=== PATIENT | female | born 1990 | race Hispanic/Latino ===

== ENCOUNTER → 2018-02-16 | Day surgery (SDC) | payer OTHER ==
[~2018-02-16] MED LIST: Fentanyl 100 MCG/2 ML VIAL ONE; Lidocaine 1% PF 5 ML VIAL ONE; Midazolam HCl 2 mg/2 ml Vial ONE; Sodium Bicarbonate 2.5 MEQ/5 ML VIAL ONE
[2018-02-16 08:13] LABS: #Eosinphils 0.3 thou/uL (0.0-0.7); #Lymphocytes 2.6 thou/uL (1.20-3.40); #Monocytes 0.7 thou/uL (0.11-0.59); #Neutrophils 4.7 thou/uL (1.40-6.50); %Basophils 0.4 % (0.0-1.0); %Eosinophils 4.2 % (0.0-10.0); %Lymphocytes 31.1 % (21.0-51.0); %Monocytes 8.6 % (0.0-10.0); %Neutrophils 55.8 % (42.0-75.0); Hemoglobin 13.6 g/dL (12.0-16.0); Mean Corpuscular HGB CONC 32.7 g/dL (32.0-36.0); Mean Corpuscular Volume 82.6 fl (81.0-99.0); Mean Platelet Volume 6.8 fL (7.4-10.4); Platelet Count 309 thou/uL (130-400); RBC Distribution Width 13.1 % (11.5-14.5); Red Blood Cell (RBC) Count 5.05 mill/uL (4.20-5.40); White Blood Cell (WBC) Count 8.4 thou/uL (4.8-10.8)
[2018-02-16 08:26] LABS: INR-International Normal Ratio 1.1; PTT 28.3 SEC (22.9-36.1); Prothrombin Time 14.3 SEC (12.0-14.7)
[2018-02-16 08:41] VITALS: TEMP 98.5
[2018-02-16 08:50] LABS: ALT (SGPT) 238 U/L (8-55); AST (SGOT) 107 U/L (5-34); Albumin 3.9 g/dL (3.5-5.0); Alkaline Phosphatase 85 U/L (40-150); Bilirubin, Direct 0.2 mg/dL (0.1-0.3); Bilirubin, Total 0.5 mg/dL (0.2-1.2); Protein, Total 7.4 g/dL (6.0-8.3)
--- NOTE | 2018-02-16 11:17 | ULT ---
ULTRASOUND HEPATIC DOPPLER: (ALCANTARA SCALE, COLOR FLOW, AND SPECTRAL DOPPLER) Date: 02/16/18 HISTORY: Elevated LFTs. FINDINGS: The liver demonstrates homogeneous echotexture without focal mass or intrahepatic ductal dilatation. The spleen measures 12.1 cm in length and appears normal. There is a mobile shadowing calculus in the gallbladder without gallbladder wall thickening or pericholecystic fluid. The pancreas is not well v isualized due to overlying bowel gas. The common duct measures 6.0 mm in diameter. There is normal fl ow and spectral waveforms in the hepatic, portal, and splenic vasculature. No free fluid is seen. IMPRESSION: Cholelithiasis. POS: [facility]
--- NOTE | 2018-02-16 12:17 | ULT ---
ULTRASOUND GUIDED HEPATIC BIOPSY: HISTORY: Elevated LFTs. COMPARISON: None. TECHNIQUE: The patient was brought to the ultrasound suite. All questions were answered. The patient's upper abdomen was prepped and draped in a normal sterile fashion, and 0.5 mg of Versed and 25 mcg of fentanyl were administered intravenously by a monitoring nurse. Buffered Lidocaine, 5 mL, was instilled into the superficial and deep soft tissues. A small dermatot aubrey was made. The liver was accessed with a 17 gauge introducer. Using an 18 gauge BioPince needle, a total of two 22 mm cores were obtained. The patient tolerated the procedure well without complications. IMPRESSION: Technically successful ultrasound guided liver biopsy. POS: [facility]
== END ==
LOC: ULT 07:35
PROVIDERS: ATTEND Internal Medicine Gastroenterology
PROC: 0FB03ZX Excision of Liver, Percutaneous Approach, Diagnostic (ICD-10-PCS; principal; 2018-02-16)
DX: K75.81 Nonalcoholic steatohepatitis (NASH) (principal); K74.0 Hepatic fibrosis
CPT/HCPCS: 36415; 47000; 76705; 76942; 80076; 85025; 85610; 85730; 88307; 88313; 99152; 99153; J2001; J2250; J3010

== ENCOUNTER 2018-03-23 08:16 | Outpatient (CLI) | payer OTHER | END 2018-03-23 08:17 | disposition home or self-care (01) | LOC: DTY/OP 08:16 | PROVIDERS: ATTEND Family Medicine | DX: K76.0 Fatty (change of) liver, not elsewhere classified (principal); K70.2 Alcoholic fibrosis and sclerosis of liver; K80.20 Calculus of gallbladder without cholecystitis without obstruction; Z71.3 Dietary counseling and surveillance | CPT/HCPCS: 97802 ==

== ENCOUNTER 2018-05-18 13:40 | Outpatient (CLI) | payer OTHER | END 2018-05-18 13:41 | disposition home or self-care (01) | LOC: DTY/OP 13:40 | PROVIDERS: ATTEND Family Medicine | DX: K76.0 Fatty (change of) liver, not elsewhere classified (principal) | CPT/HCPCS: 97802 ==

== ENCOUNTER 2018-08-21 08:45 | Outpatient (CLI) | payer OTHER | END 2018-08-21 08:46 | disposition home or self-care (01) | LOC: DTY/OP 08:45 | PROVIDERS: ATTEND Family Medicine | DX: K76.0 Fatty (change of) liver, not elsewhere classified (principal) | CPT/HCPCS: 97802 ==

== ENCOUNTER 2020-02-21 15:00 | Outpatient (CLI) | payer BC ==
--- NOTE | 2020-02-21 16:55 | ULT ---
TRANSABDOMINAL AND TRANSVAGINAL PELVIC ULTRASOUND: 02/21/20 INDICATION: Left lower quadrant abdominal pain. COMPARISON: None. TECHNIQUE: Bell scale, color Doppler with spectral Doppler images were obtained of the pelvis via transabdominal and transvaginal approach. FINDINGS: The left ovary was not seen. No free fluid is evident. The uterus measures 7.8 x 3.5 x 4.9 cm. The endometrial stripe measures 3.3 mm. There are multiple Na bothian cysts seen within the cervix. The right ovary measures 2.5 x 3.0 x 1.9 cm. There is a small follicle seen within the right ovary me asuring 1.4 cm. There is normal flow to the right ovary. IMPRESSION: 1. Nonvisualization of the left ovary. 2. Small right ovarian follicular cyst. 3. Nabothian cysts of the cervix. POS: [facility]
== END 2020-02-21 15:01 | disposition home or self-care (01) ==
LOC: ULT 15:00
PROVIDERS: ATTEND Physician Assistant
DX: R10.32 Left lower quadrant pain (principal); N88.8 Other specified noninflammatory disorders of cervix uteri; N83.01 Follicular cyst of right ovary
CPT/HCPCS: 36415; 76856; 80053; 85025

== ENCOUNTER 2020-10-16 15:41 | Inpatient (IN) | payer BC ==
[~2020-10-16 15:41] MED LIST changes: -Fentanyl 100 MCG/2 ML VIAL ONE; +Iopamidol-370 76% 500 ML 1 ML ONE; -Lidocaine 1% PF 5 ML VIAL ONE; -Midazolam HCl 2 mg/2 ml Vial ONE; -Sodium Bicarbonate 2.5 MEQ/5 ML VIAL ONE
[2020-10-16 16:14] LABS: #Monocytes 0.4 thou/uL (0.11-0.59); #Neutrophils 13.3 thou/uL (1.40-6.50); %Basophils 0.3 % (0.0-1.0); %Eosinophils 0.2 % (0.0-10.0); %Lymphocytes 6.7 % (21.0-51.0); %Monocytes 2.6 % (0.0-10.0); %Neutrophils 90.2 % (42.0-75.0); Hemoglobin 15.2 g/dL (12.0-16.0); Mean Corpuscular HGB CONC 32.5 g/dL (32.0-36.0); Mean Corpuscular Hemoglobin 25.5 pg (27.0-31.0); Mean Corpuscular Volume 78.6 fL (78.0-98.0); Mean Platelet Volume 6.9 fL (7.4-10.4); Platelet Count 397 thou/uL (130-400); RBC Distribution Width 14.6 % (11.5-14.5); Red Blood Cell (RBC) Count 5.95 mill/uL (4.20-5.40); White Blood Cell (WBC) Count 14.7 thou/uL (4.8-10.8)
--- NOTE | 2020-10-16 16:17 | RAD ---
XR Chest 1 View Portable History: Dyspnea Comparison: Radiograph 2015 Findings: Abnormal patchy peripheral and perihilar opacities. Severe lung hypoinflation. No pneumotho rax or effusion. No acute osseous abnormality. Impression: Commonly reported imaging findings of Covid-19 pneumonia.
[2020-10-16 16:19] LABS: BHCG - Serum Negative (NEGATIVE); Pregs Control Background? CLEAR/WHITE (CLR/WHITE); Pregs Control Bar Appear? YES (CONTROL BAR)
[2020-10-16 16:33] LABS: ALT (SGPT) 79 U/L (8-55); AST (SGOT) 48 U/L (5-34); Alkaline Phosphatase 64 U/L (40-110); Anion Gap 18 mmol/L (10-20); BUN (Urea Nitrogen) 12 mg/dL (7.0-18.7); Bilirubin, Total 0.4 mg/dL (0.2-1.2); CK (CPK) 26 U/L (29-168); Calc. Creatinine Clearance 0 mL/min (70-130); Calcium 9.5 mg/dL (7.8-10.44); Carbon Dioxide 24 mmol/L (22-29); Chloride 103 mmol/L (98-107); Globulin 4.3 g/dL (2.4-3.5); Glucose 219 mg/dL (70-105); Lipase 15 U/L (8-78); Protein, Total 8.3 g/dL (6.0-8.3); Sodium 141 mmol/L (136-145)
[2020-10-16] MEDS ORDERED: cefTRIAXone\\ROCEPHIN 2 GM VIAL ONE (17:46)
[2020-10-16] MEDS ORDERED: Dexamethasone 10 MG/ML VIAL ONE (17:46)
[2020-10-16] MEDS ORDERED: Enoxaparin Sodium 100 MG/ML SYRINGE ONE (17:46)
[2020-10-16] MEDS ORDERED: Aspirin Chewable 81 MG TAB ONE (17:46)
--- NOTE | 2020-10-16 17:48 | CT ---
CT PULMONARY ANGIOGRAM WITH IV CONTRAST AND 3-D POSTPROCESSING: HISTORY:Dyspnea, elevated d-dimer, shortness of breath and COVID 19 positive FINDINGS: There is good contrast opacification of the pulmonary arterial vasculature without filling defects to suggest pulmonary embolism. The thoracic aorta is without aneurysm or dissection. No pleural or pericardial effusions are seen. No pneumothoraces are noted. There are multifocal patchy areas of groundglass opacities and consolid ation bilaterally. The bony structures and upper abdominal tomograms are unremarkable. IMPRESSION: 1. No CT evidence of pulmonary embolism. 2. COVID 19 pneumonia
--- NOTE | 2020-10-16 18:22 | PDOC.HHP ---
Hospitalist HPI - History of Present Illness Dyspnea History of Present Illness: PCP: Dr. Delaney, [facility] The patient is a 30-year-old female with past medical history significant for prediabetes that presents to emergency department for the above complaint. Patient reports being diagnosed with COVID-19 virus 11 days ago. She reports that her entire family has Covid pneumonia. She reports that her symptoms have included mild dyspnea, nonproductive cough and intermittent pleuritic chest pain. She reports that today she became significantly more short of breath. Her dyspnea is non exertional. She denies swelling or pain to Lower extremities. No heart palpitations. Her primary care provider has started her on a azithromycin, which she has taken for 2 days now. She has had 2 rounds of low dose steroids, the first round being 10 days with little improvement of symptoms. She was started on another 6-day course of therapy, today being day 2. She denies any fever or chills. She denies loss of taste or smell. She denies abdominal pain, nausea, vomiting, diarrhea. She has no urinary symptoms. Her chest pain is generalized, described as sharp pleuritic in nature worse with deep inhalation, relieved by nothing. ED Course: VITAL SIGNS MonOct 16, 2020 15:42 GIOVANNI Son Amanda Pulse: 136, O2 sat: 68 on (Room Air), Time: 10/16/2020 15:42. VITAL SIGNS MonOct 16, 2020 15:47 GIOVANNI Montoya Alexandra BP: 140/83, MAP: 102, Pulse: 121, Resp: 40, Temp: 98.4 (Oral), Pain: 0, O2 sat: 96 on (Non Rebreather), Time: 10/16/2020 15:47. VITAL SIGNS MonOct 16, 2020 16:00 GIOVANNI Montoya Alexandra BP: 119/80, MAP: 93, Pulse: 122, Resp: 39, Pain: 0, O2 sat: 97 on (Non Rebreather), Time: 10/16/2020 16:00. VITAL SIGNS MonOct 16, 2020 16:30 GIOVANNI Montoya Alexandra BP: 119/82, MAP: 94, Pulse: 114, Resp: 35, Temp: 98.1 (Oral), Pain: 0, O2 sat: 99 on (Non Rebreather), Time: 10/16/2020 16:30. VITAL SIGNS MonOct 16, 2020 17:00 GIOVANNI Montoya Alexandra BP: 145/86, MAP: 96, Pulse: 103, Resp: 27, Pain: 0, O2 sat: 100 on (Non Rebreather), Time: 10/16/2020 17:00. VITAL SIGNS MonOct 16, 2020 17:40 GIOVANNI Montoya Alexandra BP: 118/86, MAP: 96, Pulse: 115, Resp: 38, Temp: 98.9 (Oral), Pain: 0, O2 sat: 97 on (Non Rebreather), Time: 10/16/2020 17:40. VITAL SIGNS MonOct 16, 2020 18:06 GIOVANNI Montoya Alexandra BP: 127/96, MAP: 106, Pulse: 112, Resp: 30, Pain: 0, O2 sat: 99 on (Non Rebreather), Time: 10/16/2020 18:06. Medications: Lovenox 1 mg/kg Subcutaneous Given 18:03 10/16/2020 cefTRIAXone injection 2 g IV Piggy Back Given 18:01 10/16/2020 aspirin oral 324 mg Oral Given 17:56 10/16/2020 Decadron Phosphate injection 10mg mg IV Push Given 17:55 10/16/2020 sodium chloride 0.9 % intravenous 1 L IV Fluid Infusion Given 17:54 10/16/2020 Hospitalist ROS - Review of Systems All other systems reviewed; all pertinent +/- noted in HPI/Subj - Medication Medications: metFORMIN MonOct 16, 2020 16:05 GIOVANNI Montoya Alexandra tablet : Strength - 500 mg : ORAL Patient Dose: 1 tab(s) Oral once a day. dexamethasone MonOct 16, 2020 16:06 GIOVANNI Montoya Alexandra tablet : Strength - 6 mg : ORAL Patient Dose: 1 tab(s) Oral once a day. Zithromax oral MonOct 16, 2020 16:07 GIOVANNI Montoya Alexandra capsule : Strength - 250 mg : ORAL Patient Dose: Unknown Allergies: No Known Allergies Hospitalist History - Past Medical History Source: patient Endocrine: reports: Diabetes (Prediabetes) - Past Surgical History Past Surgical History: reports: no pertinent history - Family History Other Family History: Noncontributory to this case - Social History Smoking Status: Never smoker Alcohol: reports: None Drugs: reports: none Living Situation: With Family Activity level: independent ambulation - Exam General Appearance: awake alert. negative: ill appearing General - other findings: Mild respiratory distress, nonrebreather, mild tachypnea Eye: anicteric sclera ENT: normocephalic atraumatic, dry oral mucosa Neck: supple, no lymphadenopathy Heart: no murmur, no gallops, no rubs, normal peripheral pulses Heart - other findings: Tachycardic Respiratory: no wheezes, no rales, no ronchi, tachypneic Respiratory - other findings: Diminished lower lobes Gastrointestinal: soft, non-tender, normal bowel sounds, no guarding, no rigidity Extremities: no cyanosis, no edema Skin: no rashes Neurological: no focal deficits Musculoskeletal: normal tone, normal strength Psychiatric: normal affect, A&O x 3 Hospitalist Results - Labs Result Diagrams: 10/16/20 16:02 10/16/20 16:02 Lab results: WBC 14.7 thou/uL (4.8-10.8) H 10/16/20 16:02 Hgb 15.2 g/dL (12.0-16.0) 10/16/20 16:02 Hct 46.8 % (36.0-47.0) 10/16/20 16:02 MCV 78.6 fL (78.0-98.0) 10/16/20 16:02 Plt Count 397 thou/uL (130-400) 10/16/20 16:02 Neutrophils % 90.2 % (42.0-75.0) H 10/16/20 16:02 Sodium 141 mmol/L (136-145) 10/16/20 16:02 Potassium 4.0 mmol/L (3.5-5.1) 10/16/20 16:02 Chloride 103 mmol/L (98-107) 10/16/20 16:02 Carbon Dioxide 24 mmol/L (22-29) 10/16/20 16:02 BUN 12 mg/dL (7.0-18.7) 10/16/20 16:02 Creatinine 0.70 mg/dL (0.6-1.1) 10/16/20 16:02 Glucose 219 mg/dL (70-105) H 10/16/20 16:02 Lactic Acid 2.4 mmol/L (0.5-2.2) H 10/16/20 16:46 Calcium 9.5 mg/dL (7.8-10.44) 10/16/20 16:02 Total Bilirubin 0.4 mg/dL (0.2-1.2) 10/16/20 16:02 AST 48 U/L (5-34) H 10/16/20 16:02 ALT 79 U/L (8-55) H 10/16/20 16:02 Alkaline Phosphatase 64 U/L (40-110) 10/16/20 16:02 Creatine Kinase 26 U/L (29-168) L 10/16/20 16:02 Troponin I Less than 0.010 ng/mL (< 0.028) 10/16/20 16:02 B-Natriuretic Peptide Less than 10.0 pg/mL (0-100) 10/16/20 16:02 Serum Total Protein 8.3 g/dL (6.0-8.3) 10/16/20 16:02 Albumin 4.0 g/dL (3.5-5.0) 10/16/20 16:02 Lipase 15 U/L (8-78) 10/16/20 16:02 - EKG Interpretation EKG: Sinus tachycardia - Radiology Interpretation CT scan - chest Status: report reviewed by me Additional Comment: IMPRESSION: 1. No CT evidence of pulmonary embolism. 2. COVID 19 pneumonia Chest x-ray Status: report reviewed by me Additional Comment: Impression: Commonly reported imaging findings of Covid-19 pneumonia. Hospitalist H&P A/P - Problem (1) Pneumonia due to COVID-19 virus Code(s): U07.1 - COVID-19; J12.82 - PNEUMONIA DUE TO CORONAVIRUS DISEASE 2019 Status: Acute (2) Acute respiratory failure with hypoxia Code(s): J96.01 - ACUTE RESPIRATORY FAILURE WITH HYPOXIA Status: Acute (3) Sepsis Code(s): A41.9 - SEPSIS, UNSPECIFIED ORGANISM Status: Acute (4) Leukocytosis Code(s): D72.829 - ELEVATED WHITE BLOOD CELL COUNT, UNSPECIFIED Status: Acute (5) Pre-diabetes Code(s): R73.03 - PREDIABETES Status: Chronic - Plan Plan: 30/ diagnosed Covid 11 days ago, presents for worsening dyspnea. Admit to medical floor, inpatient status. Presented tachycardic, tachypneic, hypoxicstarted on NRB. EKG sinus tachycardia Initial troponin negative, BNP less than 10 D-dimer 0.55, CTA negative for pulmonary embolism CXR consistent for Covid pneumonia LA 2.4, WBCs 14.7 #Pneumonia due to COVID-19 virus A: mildly tachycardia & tachypneic SPO2 100% on NRB Will attempt to wean off NRB. Continue Rocephin and azithromycin. Continue dexamethasone. Lovenox for prophylaxis. Not in the window for remdesivir. Consult ID. Isolation precautions. Start vitamin D, vitamin C, zinc. Start Protonix. #Acute respiratory failure with hypoxia Likely related to problem #1. #Sepsis Presented tachycardic, tachypneic, hypoxic. WBCs 14.7, LA 2.4 Given 1 L normal saline in ED. Blood cultures pending Order UA. #Chest pain Pleuritic. Likely related to Problem #1 Heart score 1, low risk. delta trop, check TSH #Leukocytosis Presented WBCs 14.7 Superimposed bacterial infection versus steroid usage. Continue Abx for possible bacterial source. #Prediabetes Presented blood glucose 219 On day 12 low-dose steroids as an outpatient. Hold home dose metformin. Start moderate ISS. Accu-Cheks AC at bedtime. Lovenox for DVT prophylaxis. Protonix for GI prophylaxis. CODE STATUS is full code. Discussed the case with attending physician, Dr. Carvajal, who is in agreement with plan of care.
[2020-10-16] MEDS ORDERED: Ondansetron PF 4 MG/2 ML Vial IVP PRN (18:42)
[2020-10-16] MEDS ORDERED: Senokot S 8.6-50 MG TAB PO PRN (18:42)
[2020-10-16] MEDS ORDERED: HYDROcodone/Acetaminophen 5/325 mg Tablet PO PRN ×2 (18:42)
[2020-10-16] MEDS ORDERED: Guaifenesin DM 100-10/5 ML UDCUP PO PRN (18:42)
[2020-10-16] MEDS ORDERED: Calcium Carbonate 500 MG ChewTAB PO PRN (18:42)
[2020-10-16] MEDS ORDERED: Ondansetron ODT 4 MG TAB PO PRN (18:42)
[2020-10-16] MEDS ORDERED: Acetaminophen 325 MG TAB PO PRN (18:42)
[2020-10-16] MEDS ORDERED: HumaLOG 300 UNITS/3 ML VIAL SC PRN (18:49)
[2020-10-16] MEDS ORDERED: Dextrose 5% in Water 1,000 ML IV PRN (18:49)
[2020-10-16] MEDS ORDERED: Dextrose 50% Abboject 50 ML SYRINGE SLOW IVP PRN (18:49)
[2020-10-16 19:57] LABS: Troponin I Less than 0.010 ng/mL (< 0.028)
[2020-10-16 20:14] LABS: Lactic Acid 1.2 mmol/L (0.5-2.2)
[2020-10-16 22:39] VITALS: BMI 41.9
[2020-10-17 00:39] LABS: Bacteria/HPF None Seen HPF (None Seen); Bilirubin Negative (Negative); Blood, Urine Negative (Negative); Clarity Clear (Clear); Glucose, Urine (Dipstick) Normal (Negative); Ketone, Urine Negative (Negative); Leukocyte Negative Leu/uL (Negative); Nitrite Negative (Negative); Protein, Urine (Dipstick) 20 mg/dL (Neg-Trace); RBC/HPF 0-3 HPF (0-3); Squamous Epithelial 0-3 HPF (0-3); Urobilinogen Normal mg/dL (Less than 2); WBC/HPF 0-3 HPF (0-3); pH, Urine 6.5 (5.0-9.0)
[2020-10-17 00:41] LABS: Specific Gravity, Urine 1.048 (1.002-1.036)
[2020-10-17 07:04] LABS: #Lymphocytes 1.7 thou/uL (1.20-3.40); #Monocytes 0.8 thou/uL (0.11-0.59); #Neutrophils 7.6 thou/uL (1.40-6.50); %Eosinophils 0.2 % (0.0-10.0); %Lymphocytes 16.8 % (21.0-51.0); %Monocytes 7.6 % (0.0-10.0); %Neutrophils 75.4 % (42.0-75.0); Hemoglobin 13.3 g/dL (12.0-16.0); Mean Corpuscular HGB CONC 32.8 g/dL (32.0-36.0); Mean Corpuscular Hemoglobin 25.8 pg (27.0-31.0); Mean Corpuscular Volume 78.7 fL (78.0-98.0); Mean Platelet Volume 6.6 fL (7.4-10.4); Platelet Count 392 thou/uL (130-400); RBC Distribution Width 14.4 % (11.5-14.5); Red Blood Cell (RBC) Count 5.16 mill/uL (4.20-5.40); White Blood Cell (WBC) Count 10.1 thou/uL (4.8-10.8)
[2020-10-17 07:31] LABS: ALT (SGPT) 59 U/L (8-55); AST (SGOT) 31 U/L (5-34); Albumin 3.5 g/dL (3.5-5.0); Alkaline Phosphatase 50 U/L (40-110); Anion Gap 18 mmol/L (10-20); BUN (Urea Nitrogen) 13 mg/dL (7.0-18.7); Bilirubin, Total 0.4 mg/dL (0.2-1.2); CRP (Inflammatory) 6.69 mg/dL (= or < 0.5); Calc. Creatinine Clearance 255 mL/min (70-130); Calcium 8.5 mg/dL (7.8-10.44); Carbon Dioxide 22 mmol/L (22-29); Chloride 107 mmol/L (98-107); Globulin 3.7 g/dL (2.4-3.5); Glucose 121 mg/dL (70-105); Potassium 3.9 mmol/L (3.5-5.1); Protein, Total 7.2 g/dL (6.0-8.3); Sodium 143 mmol/L (136-145)
[2020-10-17] MEDS: Dexamethasone 4 mg/ml Vial SLOW IVP SCH (08:52)
[2020-10-17] MEDS: Ascorbic Acid 500 mg Chewable Tablet PO SCH (08:52)
[2020-10-17] MEDS: Cholecalciferol 1,000 UNITS (25 MCG) TAB PO SCH (08:52)
[2020-10-17] MEDS: Zinc Sulfate 220 MG CAP PO SCH (08:52)
[2020-10-17] MEDS: Enoxaparin Sodium 40 MG/0.4 ML SYRINGE SC SCH (08:53)
--- NOTE | 2020-10-17 08:56 | PDOC.HOSPP ---
- Subjective Encounter Date: 10/17/20 Encounter Time: 08:54 Subjective: Patient lying in bed watching TV upon my arrival. Alert and oriented, responds appropriately to questions. States she feels better today than yesterday. SPO2 shows 90-91% on 6L/min per NC. HR 85. Denies any complaints at this time. She reports no overnight events. Patient states she feels better today, than yesterday. Chart and medications reviewed. - Objective Vital Signs & Weight: Vital Signs (12 hours) Temp Pulse Resp BP Pulse Ox 10/17/20 04:00 98.6 F 86 20 119/80 93 L 10/17/20 00:00 98.6 F 80 20 117/86 97 Weight Weight 229 lb 3 oz Result Diagrams: 10/17/20 06:32 10/17/20 06:32 Additional Labs: Accuchecks 10/17/20 10/16/20 04:57 20:53 POC Glucose 128 H 142 H Hospitalist ROS - Review of Systems Constitutional: reports: weakness, malaise. denies: fever, chills, sweats Respiratory: reports: shortness of breath Cardiovascular: denies: chest pain, palpitations, orthopnea, paroxysmal noc. dyspnea, edema, light headedness, other Gastrointestinal: denies: nausea, vomiting, abdominal pain, diarrhea, constipation Skin: denies: rash, lesions, terence, bruising, other Neurological: denies: weakness, numbness, incoordination, change in speech, confusion, seizures, other - Medication Medications: Active Medications Generic Name Dose Route Start Last Admin Trade Name Freq PRN Reason Stop Dose Admin Ascorbic Acid 1,000 mg 10/17/20 09:00 10/17/20 08:52 Ascorbic Acid 500 Mg Chewable Tablet PO 1,000 mg DAILY AFSANEH Administration Cholecalciferol 5,000 units 10/17/20 09:00 10/17/20 08:52 Cholecalciferol 1,000 Units (25 Mcg) Tab PO 5,000 units DAILY AFSANEH Administration Dexamethasone 6 mg 10/17/20 09:00 10/17/20 08:52 Dexamethasone 4 Mg/Ml Vial SLOW IVP 6 mg DAILY AFSANEH Administration Enoxaparin Sodium 40 mg 10/17/20 09:00 10/17/20 08:53 Enoxaparin Sodium 40 Mg/0.4 Ml Syringe SC 40 mg 0900 AFSANEH Administration Pantoprazole Sodium 40 mg 10/17/20 09:00 10/17/20 08:52 Pantoprazole 40 Mg Tab PO 40 mg DAILY AFSANEH Administration Zinc Sulfate 220 mg 10/17/20 09:00 10/17/20 08:52 Zinc Sulfate 220 Mg Cap PO 220 mg DAILY AFSANEH Administration - Exam General Appearance: NAD, awake alert Heart: RRR, no murmur, no gallops, no rubs, normal peripheral pulses Respiratory: no wheezes, no rales, no ronchi, normal chest expansion, no tachypnea Respiratory - other findings: diminished lower lobes bilaterally Gastrointestinal: soft, non-tender, non-distended, normal bowel sounds, no bruit Neurological: cranial nerve grossly intact, normal sensation to touch, no weakness, no focal deficits, no new deficit Musculoskeletal: normal tone, normal strength, no muscle wasting Psychiatric: normal affect, normal behavior, A&O x 3 Hosp A/P - Plan old records reviewed/req, continue antibiotics 30/ diagnosed Covid 11 days ago, presents for worsening dyspnea. Admit to medical floor, inpatient status. Presented tachycardic, tachypneic, hypoxicstarted on NRB. EKG sinus tachycardia Initial troponin negative, BNP less than 10 D-dimer 0.55, CTA negative for pulmonary embolism CXR consistent for Covid pneumonia LA 2.4, WBCs 14.7 #Pneumonia due to COVID-19 virus A: mildly tachycardia & tachypneic. SPO2 93% on HFNC after desating to 84-85% on 6L NC. Continue Rocephin and azithromycin. Continue dexamethasone. Lovenox for prophylaxis. Not in the window for remdesivir. Consult ID. Isolation precautions. Start vitamin D, vitamin C, zinc. Start Protonix. #Acute respiratory failure with hypoxia Likely related to problem #1. #Sepsis Presented tachycardic, tachypneic, hypoxic. WBCs 14.7, LA 2.4 Given 1 L normal saline in ED. Blood cultures pending UA normal, specific gravity 1.048. #Chest pain Pleuritic. Likely related to Problem #1 Heart score 1, low risk. delta trop, check TSH #Leukocytosis Presented WBCs 14.7 Superimposed bacterial infection versus steroid usage. Continue Abx for possible bacterial source. #Prediabetes Presented blood glucose 219 On day 12 low-dose steroids as an outpatient. Hold home dose metformin. Start moderate ISS. Accu-Cheks AC at bedtime. Lovenox for DVT prophylaxis. Protonix for GI prophylaxis. CODE STATUS is full code.
[2020-10-17] MEDS: Azithromycin 250 MG in Sodium Chloride 0.9% 250 ML 250 ML IVPB SCH (10:02)
[2020-10-17] MEDS: HumaLOG 300 UNITS/3 ML VIAL SC PRN ×2 (12:28→16:59)
[2020-10-17] MEDS ORDERED: cefTRIAXone\\ROCEPHIN 1 GM in Sodium Chloride 0.9% 100 ML IVPB SCH (18:00)
[2020-10-18] MEDS: Zinc Sulfate 220 MG CAP PO SCH (08:13)
[2020-10-18] MEDS: Ascorbic Acid 500 mg Chewable Tablet PO SCH (08:14)
[2020-10-18] MEDS: Dexamethasone 4 mg/ml Vial SLOW IVP SCH (08:14)
[2020-10-18] MEDS: Cholecalciferol 1,000 UNITS (25 MCG) TAB PO SCH (08:14)
[2020-10-18] MEDS: Enoxaparin Sodium 40 MG/0.4 ML SYRINGE SC SCH (08:22)
--- NOTE | 2020-10-18 09:52 | PDOC.HOSPP ---
- Subjective Encounter Date: 10/18/20 Encounter Time: 09:50 Subjective: Patient sitting up in bed eating breakfast, watching TV upon my arrival. Alert and oriented, responds appropriately to questions, patient reports she is feeling down due to wanting to go home. Patient is tearful. SPO2 shows 97% on HFNC. Patient denies any complaints at this time. She reports no overnight events, states she didn't sleep well last night but refused medication for tonight when offered. Reviewed discharge goals with patient and encouraged her to reach out to family or friends via phone to instill some positive encouragement within her. Patient verbalized understanding. - Objective Vital Signs & Weight: Vital Signs (12 hours) Temp Pulse Resp BP BP Pulse Ox 10/18/20 08:14 98 10/18/20 08:00 98.3 F 81 20 116/76 98 10/18/20 04:24 98.6 F 73 20 106/75 98 Weight Weight 229 lb 3 oz I&O: 10/17/20 10/18/20 10/19/20 06:59 06:59 06:59 Intake Total 830 Balance 830 Result Diagrams: 10/17/20 06:32 10/17/20 06:32 Additional Labs: Accuchecks 10/18/20 10/17/20 10/17/20 04:17 20:40 16:20 POC Glucose 112 H 128 H 173 H 10/17/20 11:10 POC Glucose 235 H Hospitalist ROS - Review of Systems Constitutional: reports: malaise. denies: fever, chills Eyes: denies: pain, vision change, conjunctivae inflammation ENT: denies: ear pain, ear discharge, nose pain Respiratory: reports: cough, shortness of breath, SOB with excertion Cardiovascular: denies: chest pain, palpitations, orthopnea Gastrointestinal: denies: nausea, vomiting, abdominal pain, diarrhea Genitourinary: denies: dysuria, frequency Musculoskeletal: denies: neck pain, shoulder pain, arm pain, back pain Skin: denies: rash, lesions Neurological: denies: weakness, numbness, incoordination All other systems reviewed; all pertinent +/- noted in HPI/Subj - Medication Medications: Active Medications Generic Name Dose Route Start Last Admin Trade Name Freq PRN Reason Stop Dose Admin Ascorbic Acid 1,000 mg 10/17/20 09:00 10/18/20 08:14 Ascorbic Acid 500 Mg Chewable Tablet PO 1,000 mg DAILY AFSANEH Administration Cholecalciferol 5,000 units 10/17/20 09:00 10/18/20 08:14 Cholecalciferol 1,000 Units (25 Mcg) Tab PO 5,000 units DAILY AFSANEH Administration Dexamethasone 6 mg 10/17/20 09:00 10/18/20 08:14 Dexamethasone 4 Mg/Ml Vial SLOW IVP 6 mg DAILY AFSANEH Administration Enoxaparin Sodium 40 mg 10/17/20 09:00 10/18/20 08:22 Enoxaparin Sodium 40 Mg/0.4 Ml Syringe SC 40 mg 0900 AFSANEH Administration Ceftriaxone Sodium 1 gm/ 100 mls @ 200 mls/hr 10/17/20 18:00 10/17/20 17:02 Sodium Chloride IVPB 100 mls Q24HR AFSANEH Administration Azithromycin 250 mg/ Sodium 250 mls @ 250 mls/hr 10/17/20 09:00 10/17/20 10:02 Chloride IVPB 10/19/20 09:01 250 mls Q24HR AFSANEH Administration Insulin Human Lispro 0 units 10/16/20 18:49 10/17/20 16:59 Humalog 300 Units/3 Ml Vial SC 2 unit .MODERATE SLIDING SC PRN Administration Moderate Correctional Scale Pantoprazole Sodium 40 mg 10/17/20 09:00 10/18/20 08:14 Pantoprazole 40 Mg Tab PO 40 mg DAILY AFSANEH Administration Zinc Sulfate 220 mg 10/17/20 09:00 10/18/20 08:13 Zinc Sulfate 220 Mg Cap PO 220 mg DAILY AFSANEH Administration - Exam General Appearance: NAD, awake alert Eye: PERRL, anicteric sclera ENT: normocephalic atraumatic, no oropharyngeal lesions, moist mucosa Neck: supple, symmetric, no JVD, no lymphadenopathy Heart: RRR, no murmur, no gallops, no rubs, normal peripheral pulses Respiratory: CTAB, no wheezes, no rales, no ronchi, normal chest expansion, no tachypnea, normal percussion Gastrointestinal: soft, non-tender, non-distended, normal bowel sounds Extremities: no cyanosis, no clubbing, no edema Skin: normal turgor, no lesions, no rashes Neurological: cranial nerve grossly intact, normal sensation to touch, no weakness, no focal deficits, no new deficit Musculoskeletal: normal tone, normal strength, no muscle wasting Psychiatric: normal affect, normal behavior, A&O x 3 Hosp A/P - Plan old records reviewed/req, out of bed/ambulate, DVT proph w/lovenox 30 year old female diagnosed Covid 11 days ago, presents for worsening dyspnea. Admit to medical floor, inpatient status. Presented tachycardic, tachypneic, hypoxicstarted on NRB, transitioned to HFNC. EKG sinus tachycardia Initial troponin negative, BNP less than 10 D-dimer 0.55, CTA negative for pulmonary embolism CXR consistent for Covid pneumonia LA 2.4, WBCs 14.7 #Pneumonia due to COVID-19 virus A: mildly tachycardia & tachypneic. SPO2 97% on HFNC after desating to 84-85% on 6L NC. Continue Rocephin and azithromycin. Continue dexamethasone. Lovenox for prophylaxis. Not in the window for remdesivir. Consult ID. Isolation precautions. Start vitamin D, vitamin C, zinc. Start Protonix. #Acute respiratory failure with hypoxia Likely related to problem #1. #Sepsis Presented tachycardic, tachypneic, hypoxic. WBCs 14.7, LA 2.4 Given 1 L normal saline in ED. Blood cultures pending UA normal, specific gravity 1.048. #Chest pain Pleuritic. Likely related to Problem #1 Heart score 1, low risk. delta trop, TSH 2.8. #Leukocytosis Presented WBCs 14.7, 10.1 on 10/17/20. Superimposed bacterial infection versus steroid usage. Continue Abx for possible bacterial source. #Prediabetes Presented blood glucose 219 On day 12 low-dose steroids as an outpatient. Hold home dose metformin. Start moderate ISS. Accu-Cheks AC at bedtime. Lovenox for DVT prophylaxis. Protonix for GI prophylaxis. CODE STATUS is full code.
[2020-10-18] MEDS: Azithromycin 250 MG in Sodium Chloride 0.9% 250 ML 250 ML IVPB SCH (10:01)
[2020-10-18] MEDS ORDERED: REMDESIVIR (EUA) 200 MG in Sodium Chloride 0.9% 250 ML 210 ML IV SCH (16:30)
[2020-10-18] MEDS: HumaLOG 300 UNITS/3 ML VIAL SC PRN (17:06)
--- NOTE | 2020-10-18 18:41 | CON ---
DATE OF CONSULTATION: 10/18/2020 REASON FOR CONSULTATION: COVID pneumonia with exacerbation. HISTORY OF PRESENT ILLNESS: A 30-year-old with history of obesity, type 2 diabetes, who is diagnosed with COVID infection for 11 days, was given oral Decadron and azithromycin by her doctor, Dr. Delaney, in [place] and she has presented with worsening of dyspnea, which developed for the past few days. The patient denies any headaches. No vomiting. She is hungry right now, has not lost her taste and the patient has no abdominal pain, no diarrhea, and no genitourinary symptoms. No joint symptoms or neurological issues. PAST MEDICAL HISTORY: Type 2 diabetes, obesity. PAST SURGICAL HISTORY: Negative. SOCIAL HISTORY: Lives in [place]. Does not smoke. Has a child, 11-year-old, lives with her. ALLERGIES: NONE. MEDICATIONS: She had been on, 1. Metformin. 2. Decadron. 3. Zithromax. Currently, she is receiving, 1. Pantoprazole. 2. Insulin. 3. Decadron. PHYSICAL EXAMINATION: VITAL SIGNS: Temperature is normal, BP 107/64, pulse 70, respiratory rate 20, O2 saturation 97%. She is on high-flow at 60. SKIN: Normal. There is no lymphadenopathy. Peripheral IV access. HEENT: Her ocular movements are conjugate. Oral cavity, normal. NECK: Supple. LUNGS: With fairly clear breath sounds. A few crackles here and there. No wheezing. HEART: S1 and S2. Regular rate. ABDOMEN: Soft, not distended or tender. No ascites. No bladder distention. MUSCULOSKELETAL: No joint inflammatory activity. Moves extremities equally. LABORATORY DATA: White cell count is down to 10.1, hemoglobin 13.3, platelets 392. Creatinine 0.53. Liver profile with an ALT of 59. CRP 6.69. Albumin 3.5. Urinalysis normal. Blood cultures, no growth thus far. CT of chest with typical ground-glass opacity changes, I would say [id number], more prominent in lower segments of right and left lungs. ASSESSMENT AND PLAN: Obesity, type 2 diabetes with severe COVID-19. It looks like the patient was given Decadron for 11 days when it was not indicated since she was in the outpatient setting and not requiring O2 supplementation obviously, so that might have suppressed her innate immune response and prevented her from controlling the viral replication early on as most people do, so that is an argument in favor of starting remdesivir since she is not a usual patient who presents at this stage with worsening inflammatory changes, continue Decadron. Job ID: [id number] ROSS
[2020-10-18] MEDS ORDERED: Melatonin 3 MG TAB PO PRN (22:52)
[2020-10-19] MEDS: Ascorbic Acid 500 mg Chewable Tablet PO SCH (08:06)
[2020-10-19] MEDS: Dexamethasone 4 mg/ml Vial SLOW IVP SCH (08:06)
[2020-10-19] MEDS: Enoxaparin Sodium 40 MG/0.4 ML SYRINGE SC SCH (08:06)
[2020-10-19] MEDS: Zinc Sulfate 220 MG CAP PO SCH (08:07)
[2020-10-19] MEDS: Cholecalciferol 1,000 UNITS (25 MCG) TAB PO SCH (08:07)
[2020-10-19] MEDS ORDERED: REMDESIVIR (EUA) 100 MG in Sodium Chloride 0.9% 250 ML 230 ML IV SCH (17:00)
[2020-10-19 17:12] LABS: ALT (SGPT) 82 U/L (8-55); AST (SGOT) 38 U/L (5-34); Albumin 3.9 g/dL (3.5-5.0); Alkaline Phosphatase 55 U/L (40-110); Anion Gap 16 mmol/L (10-20); BUN (Urea Nitrogen) 12 mg/dL (7.0-18.7); Bilirubin, Direct 0.2 mg/dL (0.1-0.3); Bilirubin, Total 0.5 mg/dL (0.2-1.2); Calc. Creatinine Clearance 201 mL/min (70-130); Calcium 8.9 mg/dL (7.8-10.44); Carbon Dioxide 25 mmol/L (22-29); Chloride 103 mmol/L (98-107); Glucose 164 mg/dL (70-105); Protein, Total 7.8 g/dL (6.0-8.3); Sodium 140 mmol/L (136-145)
[2020-10-20] MEDS: Dexamethasone 4 mg/ml Vial SLOW IVP SCH (08:00)
[2020-10-20] MEDS: Ascorbic Acid 500 mg Chewable Tablet PO SCH (08:00)
[2020-10-20] MEDS: Zinc Sulfate 220 MG CAP PO SCH (08:00)
[2020-10-20] MEDS: Enoxaparin Sodium 40 MG/0.4 ML SYRINGE SC SCH (08:00)
[2020-10-20] MEDS: Cholecalciferol 1,000 UNITS (25 MCG) TAB PO SCH (08:00)
--- NOTE | 2020-10-20 12:02 | PDOC.HOSPP ---
- Subjective Encounter Date: 10/20/20 Subjective: The patient is requiring high flow nasal cannula at 43% - Objective Vital Signs & Weight: Vital Signs (12 hours) Temp Pulse Resp BP BP Pulse Ox 10/20/20 08:58 96 10/20/20 08:30 98.3 F 113 H 20 118/63 96 10/20/20 04:00 98.1 F 90 20 119/71 95 Weight Weight 229 lb 3 oz I&O: 10/19/20 10/20/20 10/21/20 06:59 06:59 06:59 Intake Total 730 1000 Balance 730 1000 Result Diagrams: 10/17/20 06:32 10/19/20 16:29 Additional Labs: Accuchecks 10/20/20 10/20/20 10/19/20 11:01 04:49 20:20 POC Glucose 146 H 121 H 111 H 10/19/20 16:16 POC Glucose 179 H Hospitalist ROS - Medication Medications: Active Medications Generic Name Dose Route Start Last Admin Trade Name Freq PRN Reason Stop Dose Admin Ascorbic Acid 1,000 mg 10/17/20 09:00 10/20/20 08:00 Ascorbic Acid 500 Mg Chewable Tablet PO 1,000 mg DAILY AFSANEH Administration Cholecalciferol 5,000 units 10/17/20 09:00 10/20/20 08:00 Cholecalciferol 1,000 Units (25 Mcg) Tab PO 5,000 units DAILY AFSANEH Administration Dexamethasone 6 mg 10/17/20 09:00 10/20/20 08:00 Dexamethasone 4 Mg/Ml Vial SLOW IVP 6 mg DAILY AFSANEH Administration Enoxaparin Sodium 40 mg 10/17/20 09:00 10/20/20 08:00 Enoxaparin Sodium 40 Mg/0.4 Ml Syringe SC 40 mg 0900 AFSANEH Administration Insulin Human Lispro 0 units 10/16/20 18:49 10/18/20 17:06 Humalog 300 Units/3 Ml Vial SC 2 unit .MODERATE SLIDING SC PRN Administration Moderate Correctional Scale Melatonin 3 mg 10/18/20 22:52 10/18/20 22:58 Melatonin 3 Mg Tab PO 3 mg HS PRN Administration Insomnia Pantoprazole Sodium 40 mg 10/17/20 09:00 10/20/20 08:00 Pantoprazole 40 Mg Tab PO 40 mg DAILY AFSANEH Administration Zinc Sulfate 220 mg 10/17/20 09:00 10/20/20 08:00 Zinc Sulfate 220 Mg Cap PO 220 mg DAILY AFSANEH Administration - Exam General Appearance: awake alert ENT: normocephalic atraumatic Neck: supple Heart: RRR Respiratory: normal chest expansion, no tachypnea Extremities: no cyanosis, no clubbing Neurological: cranial nerve grossly intact Hosp A/P (1) Acute respiratory failure with hypoxia Code(s): J96.01 - ACUTE RESPIRATORY FAILURE WITH HYPOXIA Status: Acute (2) Pneumonia due to COVID-19 virus Code(s): U07.1 - COVID-19; J12.82 - PNEUMONIA DUE TO CORONAVIRUS DISEASE 2019 Status: Acute - Plan Continue supplemental oxygen and wean as tolerated. Continue dexamethasone, enoxaparin, Protonix, and zinc.
--- NOTE | 2020-10-20 17:52 | PRG ---
DATE OF SERVICE: 10/20/2020 SUBJECTIVE: Feeling better, able to eat. No diarrhea. No abdominal pain. She is downgraded to 40 L/minute in her high-flow requirements and she is saturating 93% to 97%. OBJECTIVE: LUNGS: With a few crackles here and there. No wheezing. HEART: S1, S2. Regular rate. ABDOMEN: Soft, not distended. NEUROLOGIC: Nonfocal. LABORATORY DATA: White cell count is 10.1, hemoglobin 13. Creatinine is 0.67. AST 38, ALT 82, and blood cultures negative. She is currently receiving Decadron and other p.r.n. medications. ASSESSMENT/DISCUSSION: Obesity, type 2 diabetes, severe COVID with early improvement after Decadron started. Actually she had been on Decadron before, so I am not clear why she is getting better now. Anyway so we will continue monitoring her progress. Her markers show a decrease in CRP from 6 to 1 and so there is some early improvement there. Job ID: [id number] MTD[facility]
[2020-10-21] MEDS: Enoxaparin Sodium 40 MG/0.4 ML SYRINGE SC SCH ×2 (08:37→21:55)
[2020-10-21] MEDS: Zinc Sulfate 220 MG CAP PO SCH (08:38)
[2020-10-21] MEDS: Cholecalciferol 1,000 UNITS (25 MCG) TAB PO SCH (08:38)
[2020-10-21] MEDS: Ascorbic Acid 500 mg Chewable Tablet PO SCH (08:38)
[2020-10-21] MEDS: Dexamethasone 4 mg/ml Vial SLOW IVP SCH (08:42)
--- NOTE | 2020-10-21 12:26 | PDOC.HOSPP ---
- Subjective Encounter Date: 10/21/20 Subjective: The patient is feeling better today. She is now on less than 40% FiO2. - Objective Vital Signs & Weight: Vital Signs (12 hours) Temp Pulse Resp BP Pulse Ox 10/21/20 11:31 90 L 10/21/20 09:16 98.0 F 95 20 93/58 L 93 L 10/21/20 08:00 93 L Weight Weight 229 lb 3 oz I&O: 10/20/20 10/21/20 10/22/20 06:59 06:59 06:59 Intake Total 1000 960 Balance 1000 960 Result Diagrams: 10/17/20 06:32 10/19/20 16:29 Additional Labs: Accuchecks 10/21/20 10/21/20 10/20/20 11:41 05:02 20:35 POC Glucose 158 H 92 112 H 10/20/20 16:38 POC Glucose 101 H Hospitalist ROS - Medication Medications: Active Medications Generic Name Dose Route Start Last Admin Trade Name Freq PRN Reason Stop Dose Admin Ascorbic Acid 1,000 mg 10/17/20 09:00 10/21/20 08:38 Ascorbic Acid 500 Mg Chewable Tablet PO 1,000 mg DAILY AFSANEH Administration Cholecalciferol 5,000 units 10/17/20 09:00 10/21/20 08:38 Cholecalciferol 1,000 Units (25 Mcg) Tab PO 5,000 units DAILY AFSANEH Administration Dexamethasone 6 mg 10/17/20 09:00 10/21/20 08:42 Dexamethasone 4 Mg/Ml Vial SLOW IVP 6 mg DAILY AFSANEH Administration Insulin Human Lispro 0 units 10/16/20 18:49 10/18/20 17:06 Humalog 300 Units/3 Ml Vial SC 2 unit .MODERATE SLIDING SC PRN Administration Moderate Correctional Scale Melatonin 3 mg 10/18/20 22:52 10/18/20 22:58 Melatonin 3 Mg Tab PO 3 mg HS PRN Administration Insomnia Pantoprazole Sodium 40 mg 10/17/20 09:00 10/21/20 08:39 Pantoprazole 40 Mg Tab PO 40 mg DAILY AFSANEH Administration Zinc Sulfate 220 mg 10/17/20 09:00 10/21/20 08:38 Zinc Sulfate 220 Mg Cap PO 220 mg DAILY AFSANEH Administration - Exam General Appearance: awake alert ENT: normocephalic atraumatic Respiratory: normal chest expansion, no tachypnea Extremities: no cyanosis, no clubbing Hosp A/P (1) Acute respiratory failure with hypoxia Code(s): J96.01 - ACUTE RESPIRATORY FAILURE WITH HYPOXIA Status: Acute (2) Pneumonia due to COVID-19 virus Code(s): U07.1 - COVID-19; J12.82 - PNEUMONIA DUE TO CORONAVIRUS DISEASE 2019 Status: Acute - Plan Continue supplemental oxygen and wean as tolerated. Continue dexamethasone, enoxaparin, Protonix, and zinc. We will likely transition her to nasal cannula today.
[2020-10-21 17:08] LABS: ALT (SGPT) 79 U/L (8-55); AST (SGOT) 32 U/L (5-34); Albumin 3.9 g/dL (3.5-5.0); Alkaline Phosphatase 53 U/L (40-110); Anion Gap 17 mmol/L (10-20); BUN (Urea Nitrogen) 12 mg/dL (7.0-18.7); Bilirubin, Direct 0.2 mg/dL (0.1-0.3); Bilirubin, Total 0.4 mg/dL (0.2-1.2); Calc. Creatinine Clearance 208 mL/min (70-130); Calcium 9.4 mg/dL (7.8-10.44); Carbon Dioxide 25 mmol/L (22-29); Chloride 104 mmol/L (98-107); Glucose 116 mg/dL (70-105); Potassium 3.9 mmol/L (3.5-5.1); Protein, Total 7.9 g/dL (6.0-8.3); Sodium 142 mmol/L (136-145)
[2020-10-22] MEDS: Zinc Sulfate 220 MG CAP PO SCH (08:17)
[2020-10-22] MEDS: Cholecalciferol 1,000 UNITS (25 MCG) TAB PO SCH (08:17)
[2020-10-22] MEDS: Dexamethasone 4 mg/ml Vial SLOW IVP SCH (08:17)
[2020-10-22] MEDS: Ascorbic Acid 500 mg Chewable Tablet PO SCH (08:17)
[2020-10-22] MEDS: Enoxaparin Sodium 40 MG/0.4 ML SYRINGE SC SCH ×2 (08:18→22:34)
[2020-10-22] MEDS: HumaLOG 300 UNITS/3 ML VIAL SC PRN (12:17)
--- NOTE | 2020-10-22 12:43 | PDOC.HOSPP ---
- Subjective Encounter Date: 10/22/20 Subjective: The patient was saturating well on room air at rest but when she ambulated her oxygen saturations dropped to the low 80s and she was significantly tachycardic. - Objective Vital Signs & Weight: Vital Signs (12 hours) Temp Pulse Resp BP Pulse Ox 10/22/20 08:56 98.1 F 109 H 20 120/69 93 L 10/22/20 08:00 96 10/22/20 07:15 91 L Weight Weight 229 lb 3 oz I&O: 10/21/20 10/22/20 10/23/20 06:59 06:59 06:59 Intake Total 960 Balance 960 Result Diagrams: 10/17/20 06:32 10/21/20 16:32 Additional Labs: Accuchecks 10/22/20 10/22/20 10/21/20 11:51 05:14 20:50 POC Glucose 231 H 77 136 H 10/21/20 16:14 POC Glucose 117 H Hospitalist ROS - Medication Medications: Active Medications Generic Name Dose Route Start Last Admin Trade Name Freq PRN Reason Stop Dose Admin Ascorbic Acid 1,000 mg 10/17/20 09:00 10/22/20 08:17 Ascorbic Acid 500 Mg Chewable Tablet PO 1,000 mg DAILY AFSANEH Administration Cholecalciferol 5,000 units 10/17/20 09:00 10/22/20 08:17 Cholecalciferol 1,000 Units (25 Mcg) Tab PO 5,000 units DAILY AFSANEH Administration Dexamethasone 6 mg 10/17/20 09:00 10/22/20 08:17 Dexamethasone 4 Mg/Ml Vial SLOW IVP 6 mg DAILY AFSANEH Administration Enoxaparin Sodium 40 mg 10/21/20 21:00 10/22/20 08:18 Enoxaparin Sodium 40 Mg/0.4 Ml Syringe SC 40 mg 0900,2100 AFSANEH Administration Insulin Human Lispro 0 units 10/16/20 18:49 10/22/20 12:17 Humalog 300 Units/3 Ml Vial SC 4 unit .MODERATE SLIDING SC PRN Administration Moderate Correctional Scale Melatonin 3 mg 10/18/20 22:52 10/18/20 22:58 Melatonin 3 Mg Tab PO 3 mg HS PRN Administration Insomnia Pantoprazole Sodium 40 mg 10/17/20 09:00 10/22/20 08:18 Pantoprazole 40 Mg Tab PO 40 mg DAILY AFSANEH Administration Zinc Sulfate 220 mg 10/17/20 09:00 10/22/20 08:17 Zinc Sulfate 220 Mg Cap PO 220 mg DAILY AFSANEH Administration - Exam General Appearance: awake alert Neck: supple Respiratory: normal chest expansion, no tachypnea Neurological: cranial nerve grossly intact, no focal deficits Hosp A/P (1) Acute respiratory failure with hypoxia Code(s): J96.01 - ACUTE RESPIRATORY FAILURE WITH HYPOXIA Status: Acute (2) Pneumonia due to COVID-19 virus Code(s): U07.1 - COVID-19; J12.82 - PNEUMONIA DUE TO CORONAVIRUS DISEASE 2019 Status: Acute - Plan Continue supplemental oxygen and wean as tolerated. Continue dexamethasone, enoxaparin, Protonix, and zinc. She did not tolerate an ambulating pulse oximetry trial today due to significant tachycardia or shortness of breath.
--- NOTE | 2020-10-22 19:08 | PRG ---
DATE OF SERVICE: 10/22/2020 SUBJECTIVE: Ms. Carey is still desaturating when she does minimal effort, like for example, standing up from the bed, she will drop down from 99% to 85% in her saturations. She is awake and anxious to go home, but I explained to her that she would probably have to be readmitted very shortly if she went home in this situation. She has some personal issues at home. Apparently, I think her father from an unrelated event, possibly a cardiac event, and she feels responsible to take care of her mother, which is a difficult situation. OBJECTIVE: VITAL SIGNS: She has been afebrile and saturating anywhere from 95 down to 88 on minimal effort at 3 L nasal cannula. Tachycardic intermittently. She is breathing at 20 to 24 times a minute. LUNGS: Show a few crackles scattered. She is still coughing intermittently and gets quite tachypneic at the least effort. ABDOMEN: Soft, not distended. EXTREMITIES: Moves extremities equally. LABORATORY DATA: White cell count is down to 10.1, but that has not been repeated and needs to be repeated. Last chemistry with a creatinine of 0.65, and C- reactive protein of 3.92, which went up again compared with October 19. She is currently receiving Decadron. ASSESSMENT AND DISCUSSION: Obesity, type 2 diabetes, severe COVID with early improvement. This patient had been on Decadron even before admission, so this may explain the protracted nature of her illness despite her young age. So right now, she still with very marginal status with marked desaturation, although she can tolerate nasal cannula, but she is kind of very marginal right now, so discharge planning will have to wait. Job ID: [id number] [facility]
[2020-10-23] MEDS: Zinc Sulfate 220 MG CAP PO SCH (07:58)
[2020-10-23] MEDS: Cholecalciferol 1,000 UNITS (25 MCG) TAB PO SCH (07:58)
[2020-10-23] MEDS: Ascorbic Acid 500 mg Chewable Tablet PO SCH (07:59)
[2020-10-23] MEDS: Enoxaparin Sodium 40 MG/0.4 ML SYRINGE SC SCH ×2 (07:59→20:06)
[2020-10-23] MEDS: Dexamethasone 4 mg/ml Vial SLOW IVP SCH (07:59)
--- NOTE | 2020-10-23 10:03 | CT ---
Exam: CT angiogram of the chest HISTORY: Evaluate for pulmonary artery and wasn't. Elevated d-dimer. Shortness of breath. Chest pain. COVID positive patient. COMPARISON: 10/16/2020 TECHNIQUE: CT angiogram of the chest is performed in the axial plane. Three-dimensional reformatted i mages are submitted for interpretation FINDINGS: Mediastinum: No mass, lymphadenopathy or hematoma. There is evidence of pneumomediastinum. HEART: Normal size. No significant pericardial fluid. Aorta: No aneurysm or dissection Upper solid abdominal viscera: No abnormality enhancement. Trachea and central bronchi: Patent Pleural spaces: No effusion Lung parenchyma: Multi lobar peripheral groundglass opacities, in keeping with the patient's positive COVID status post. Pneumothorax: None Osseous structures: No lytic or blastic lesions Pulmonary arteries: Adequate contrast opacification pulmonary arterial system to the level of segment al arteries. No filling defect to suggest pulmonary embolism IMPRESSION: 1. No evidence of pulmonary artery embolism to the level of the segmental arteries 2. Multi lobar peripheral groundglass opacities, in keeping with the patient's history of COVID 19 pn eumonia 3. Interval development of pneumomediastinum. Results conveyed to Dr.Alnazeer Jhonathan rincon 10/23/2020 at 9:57 AM Code CR
[2020-10-23] MEDS: HumaLOG 300 UNITS/3 ML VIAL SC PRN (11:54)
--- NOTE | 2020-10-23 12:56 | PDOC.HOSPP ---
- Subjective Encounter Date: 10/23/20 Subjective: The patient was seen and examined. She saturating well on 3 to 4 L nasal cannula. She still gets short of breath easily and is tachycardic at baseline. - Objective Vital Signs & Weight: Vital Signs (12 hours) Temp Pulse Resp BP Pulse Ox 10/23/20 12:00 98.5 F 108 H 20 122/82 93 L 10/23/20 08:00 98.2 F 111 H 22 H 119/70 96 Weight Weight 229 lb 3 oz Result Diagrams: 10/17/20 06:32 10/21/20 16:32 Additional Labs: Accuchecks 10/23/20 10/23/20 10/22/20 11:35 04:55 20:49 POC Glucose 152 H 85 139 H 10/22/20 16:51 POC Glucose 110 H Hospitalist ROS - Medication Medications: Active Medications Generic Name Dose Route Start Last Admin Trade Name Freq PRN Reason Stop Dose Admin Ascorbic Acid 1,000 mg 10/17/20 09:00 10/23/20 07:59 Ascorbic Acid 500 Mg Chewable Tablet PO 1,000 mg DAILY AFSANEH Administration Cholecalciferol 5,000 units 10/17/20 09:00 10/23/20 07:58 Cholecalciferol 1,000 Units (25 Mcg) Tab PO 5,000 units DAILY AFSANEH Administration Dexamethasone 6 mg 10/17/20 09:00 10/23/20 07:59 Dexamethasone 4 Mg/Ml Vial SLOW IVP 6 mg DAILY AFSANEH Administration Enoxaparin Sodium 40 mg 10/21/20 21:00 10/23/20 07:59 Enoxaparin Sodium 40 Mg/0.4 Ml Syringe SC 40 mg 0900,2100 AFSANEH Administration Insulin Human Lispro 0 units 10/16/20 18:49 10/23/20 11:54 Humalog 300 Units/3 Ml Vial SC 2 unit .MODERATE SLIDING SC PRN Administration Moderate Correctional Scale Melatonin 3 mg 10/18/20 22:52 10/18/20 22:58 Melatonin 3 Mg Tab PO 3 mg HS PRN Administration Insomnia Pantoprazole Sodium 40 mg 10/17/20 09:00 10/23/20 07:58 Pantoprazole 40 Mg Tab PO 40 mg DAILY AFSANEH Administration Zinc Sulfate 220 mg 10/17/20 09:00 10/23/20 07:58 Zinc Sulfate 220 Mg Cap PO 220 mg DAILY AFSANEH Administration - Exam General Appearance: awake alert ENT: normocephalic atraumatic Neck: supple, no JVD Respiratory: normal chest expansion, no tachypnea Extremities: no cyanosis, no clubbing Neurological: cranial nerve grossly intact, no weakness Hosp A/P (1) Acute respiratory failure with hypoxia Code(s): J96.01 - ACUTE RESPIRATORY FAILURE WITH HYPOXIA Status: Acute (2) Pneumonia due to COVID-19 virus Code(s): U07.1 - COVID-19; J12.82 - PNEUMONIA DUE TO CORONAVIRUS DISEASE 2019 Status: Acute - Plan Continue supplemental oxygen and wean as tolerated. Continue dexamethasone, enoxaparin, Protonix, and zinc. She was tachycardic at baseline. PE was considered and CT angiogram of the chest obtained. The results did not show any emboli but did show some pneumomediastinum. The patient still not clinically ready for discharge.
[2020-10-23] MEDS ORDERED: Iopamidol 370 76% 100 ML VIAL ONE (14:54)
[2020-10-23 17:17] LABS: ALT (SGPT) 79 U/L (8-55); AST (SGOT) 32 U/L (5-34); Albumin 3.8 g/dL (3.5-5.0); Alkaline Phosphatase 51 U/L (40-110); Anion Gap 13 mmol/L (10-20); BUN (Urea Nitrogen) 12 mg/dL (7.0-18.7); Bilirubin, Direct 0.2 mg/dL (0.1-0.3); Bilirubin, Total 0.4 mg/dL (0.2-1.2); Calc. Creatinine Clearance 214 mL/min (70-130); Calcium 9.1 mg/dL (7.8-10.44); Carbon Dioxide 28 mmol/L (22-29); Chloride 102 mmol/L (98-107); Glucose 98 mg/dL (70-105); Potassium 4.2 mmol/L (3.5-5.1); Protein, Total 7.7 g/dL (6.0-8.3); Sodium 139 mmol/L (136-145)
--- NOTE | 2020-10-24 08:10 | PDOC.HOSPP ---
- Subjective Encounter Date: 10/24/20 Encounter Time: 10:20 Subjective: Patient reports feeling much better. No shortness of breath at rest on 2 to 3 L of oxygen. Her heart rate does bump up to the 130s to 140s when she ambulates on the oxygen and her O2 sat does drop into the high 80s. However, patient reports no shortness of breath no chest pain and no weakness lightheadedness or dizziness when she ambulates. She is eager to go home. She states that she has her parents at home who can obtain food for her and help her with chores around the house. They have both recovered from Covid already. I did have the patient ambulate around the room. She was able to walk back and forth through the room without any unsteadiness or any apparent shortness of breath or tachypnea. - Objective Vital Signs & Weight: Vital Signs (12 hours) Temp Pulse Resp BP Pulse Ox 10/24/20 07:33 98.2 F 86 20 101/66 92 L 10/24/20 05:14 98.2 F 72 16 95/64 93 L 10/24/20 00:13 97.8 F 73 16 114/78 93 L 10/23/20 20:16 98.1 F 97 18 127/85 91 L Weight Weight 229 lb 3 oz Result Diagrams: 10/17/20 06:32 10/23/20 16:39 Additional Labs: Accuchecks 10/24/20 10/23/20 10/23/20 04:47 19:37 16:42 POC Glucose 78 168 H 95 10/23/20 11:35 POC Glucose 152 H Hospitalist ROS - Review of Systems Constitutional: denies: fever, chills Respiratory: denies: cough, shortness of breath Cardiovascular: denies: chest pain, palpitations Gastrointestinal: denies: nausea, vomiting, abdominal pain - Medication Medications: Active Medications Generic Name Dose Route Start Last Admin Trade Name Juanq PRN Reason Stop Dose Admin Ascorbic Acid 1,000 mg 10/17/20 09:00 10/23/20 07:59 Ascorbic Acid 500 Mg Chewable Tablet PO 1,000 mg DAILY AFSANEH Administration Cholecalciferol 5,000 units 10/17/20 09:00 10/23/20 07:58 Cholecalciferol 1,000 Units (25 Mcg) Tab PO 5,000 units DAILY AFSANEH Administration Dexamethasone 6 mg 10/17/20 09:00 10/23/20 07:59 Dexamethasone 4 Mg/Ml Vial SLOW IVP 6 mg DAILY AFSANEH Administration Enoxaparin Sodium 40 mg 10/21/20 21:00 10/23/20 20:06 Enoxaparin Sodium 40 Mg/0.4 Ml Syringe SC 40 mg 0900,2100 AFSANEH Administration Insulin Human Lispro 0 units 10/16/20 18:49 10/23/20 11:54 Humalog 300 Units/3 Ml Vial SC 2 unit .MODERATE SLIDING SC PRN Administration Moderate Correctional Scale Melatonin 3 mg 10/18/20 22:52 10/18/20 22:58 Melatonin 3 Mg Tab PO 3 mg HS PRN Administration Insomnia Pantoprazole Sodium 40 mg 10/17/20 09:00 10/23/20 07:58 Pantoprazole 40 Mg Tab PO 40 mg DAILY AFSANEH Administration Zinc Sulfate 220 mg 10/17/20 09:00 10/23/20 07:58 Zinc Sulfate 220 Mg Cap PO 220 mg DAILY AFSANEH Administration - Exam General Appearance: NAD, awake alert ENT: moist mucosa Heart: RRR, no murmur, no gallops, no rubs Respiratory: CTAB, no wheezes, no rales, no ronchi Gastrointestinal: soft, non-tender, non-distended, normal bowel sounds Psychiatric: normal affect, normal behavior, A&O x 3 Hosp A/P - Plan diagnosed Covid 11 days prior to admission, presenting for worsening dyspnea. Admitted to medical floor, inpatient status. Presented tachycardic, tachypneic, hypoxicstarted on NRB. EKG sinus tachycardia Initial troponin negative, BNP less than 10 D-dimer 0.55, CTA negative for pulmonary embolism CXR consistent for Covid pneumonia LA 2.4, WBCs 14.7 #Pneumonia due to COVID-19 virus Patient off all antibiotics. On 3L NC this morning Continue dexamethasone. Lovenox for prophylaxis. Not in the window for remdesivir. Isolation precautions. On vitamin D, vitamin C, zinc. #Acute respiratory failure with hypoxia Likely related to problem #1. #Sepsis Resolved. #Chest pain Pleuritic. Elevated D-dimer Tachycardic, so CTA done showing pneumomediastinum No PE #Pneumomediastinum Likely due to non-invasive ventilation earlier in hospitalization, no pneumothorax, asymptomatic #Prediabetes Presented blood glucose 219 On day 12 low-dose steroids as an outpatient. Holding home dose metformin. Started on moderate ISS. Accu-Cheks AC at bedtime. Lovenox for DVT prophylaxis. Protonix for GI prophylaxis. CODE STATUS is full code. Disposition Patient stable to go home on home O2. She is to follow-up with her primary care physician in the next week. CT angiogram of the chest IMPRESSION: 1. No evidence of pulmonary artery embolism to the level of the segmental arteries 2. Multi lobar peripheral groundglass opacities, in keeping with the patient's history of COVID 19 pneumonia 3. Interval development of pneumomediastinum. Results conveyed to Dr.Alnazeer Jhonathan rincon 10/23/2020 at 9:57 AM Code CR
[2020-10-24] MEDS: Zinc Sulfate 220 MG CAP PO SCH (08:15)
[2020-10-24] MEDS: Ascorbic Acid 500 mg Chewable Tablet PO SCH (08:15)
[2020-10-24] MEDS: Cholecalciferol 1,000 UNITS (25 MCG) TAB PO SCH (08:16)
[2020-10-24] MEDS: Dexamethasone 4 mg/ml Vial SLOW IVP SCH (08:17)
[2020-10-24] MEDS: Enoxaparin Sodium 40 MG/0.4 ML SYRINGE SC SCH (08:17)
--- NOTE | 2020-10-24 13:31 | PDOC.DS.DS ---
Provider - Provider Date of Admission: 10/16/20 18:13 Date of Discharge: 10/24/20 Admitting Provider: Andry Carvajal MD Consultations: Infectious Disease (Dr. Barahona) Primary Care Physician: Lee Ann Turner PA-C Course - Hospital Course Hospital Course: This is a 30-year-old obese female with a history of prediabetes on Metformin. She had a positive Covid tests on October 04. She presented to the hospital with acute worsening of her shortness of breath. She was found to be in hypoxic respiratory failure and had to be on noninvasive ventilation at first. Patient was slowly able to be weaned down on her oxygen. She was given dexamethasone throughout her hospitalization. She was outside the window for remdesivir. Patient was still having some significant chest pain along with significant tachycardia after being weaned down on her oxygen. She had a very elevated D-dimer, so a CT angio was done. This showed no PE but she did have a pneumomediastinum, presumably from her earlier noninvasive ventilation. Patient symptoms continue to improve. The day of discharge her chest pain and shortness of breath have completely resolved. She did have home oxygen arranged for and is being discharged home. Pertinent Studies: CT angio of the chest: No evidence for pulmonary embolism or pneumothorax, there is a pneumomediastinum Resuscitation Status: 10/16/20 18:42 Resuscitation Status Routine Co-Sign Provider: Resuscitation Status: FULL: Full Resuscitation Discussed with: patient - Labs Lab Results: 10/17/20 06:32 10/23/20 16:39 Abnormal Lab Results - Last 48 hrs 10/23/20 06:14: C-Reactive Protein 1.01 H 10/23/20 06:14: D-Dimer 1.98 H 10/23/20 16:39: ALT 79 H Microbiology - Entire Visit 10/16/20 16:47 Venous blood - Right Arm Blood Culture - Final NO GROWTH IN 5 DAYS 10/16/20 16:47 Venous blood - Left Arm Blood Culture - Final NO GROWTH IN 5 DAYS - Physical Exam Vitals: Vital Signs (12 hours) Temp Pulse Resp BP Pulse Ox 10/24/20 08:20 92 L 10/24/20 07:33 98.2 F 86 20 101/66 92 L 10/24/20 05:14 98.2 F 72 16 95/64 93 L Weight Weight 229 lb 3 oz Physical Exam: The patient was seen and examined on the day of discharge. Problem - Discharge Plan Assessment: #Pneumonia due to COVID-19 virus #Acute respiratory failure with hypoxia #Sepsis Resolved. #Chest pain Resolved #Pneumomediastinum Likely due to non-invasive ventilation earlier in hospitalization, no pneumothorax, asymptomatic #Prediabetes CODE STATUS is full code. Plan of Treatment: Patient has completed her dexamethasone course. She is being discharged home on home oxygen. She is to follow-up with her primary care physician in 1 week. She can end her isolation at that time and may return to work when cleared by her primary care physician. - Time spent with Patient (mins): 32 Plan - Discharge Medications Home Medications: Medication Instructions Recorded Confirmed Type metFORMIN HCl [Metformin HCl ER] 500 mg PO DAILY 10/16/20 10/16/20 History Allergies: No Known Allergies Allergy (Verified 10/16/20 22:22) Vertified by patient - Discharge Instructions Activity:: Activity as Tolerated Nourishment:: Diabetic Diet Therapies:: Not Applicable Equipment/Supplies:: Oxygen (3L NC) IV Therapy:: Not Applicable - Follow up Plan Referrals: [facility] [Outside] Lee Ann Turner PA-C [Primary Care Provider] - 7 Days Disposition: HOME Quality - Care Measures CORE MEASURES:: N/A
[2020-10-24 13:33] VITALS: BP 122/86; TEMP 98.3
--- NOTE | 2020-10-26 10:52 | EKG ---
Test Reason : Blood Pressure : / mmHG Vent. Rate : 092 BPM Atrial Rate : 092 BPM P-R Int : 126 ms QRS Dur : 086 ms QT Int : 380 ms P-R-T Axes : 024 -05 036 degrees QTc Int : 469 ms Normal sinus rhythm with sinus arrhythmia Normal ECG Confirmed by JAY MEDEIROS ([id number]) on 10/26/2020 10:52:06 AM Referred By: DEBORAH Confirmed By:JAY MEDEIROS
--- NOTE | 2020-11-07 22:56 | EKG ---
Test Reason : Blood Pressure : / mmHG Vent. Rate : 129 BPM Atrial Rate : 129 BPM P-R Int : 136 ms QRS Dur : 088 ms QT Int : 302 ms P-R-T Axes : 030 -02 000 degrees QTc Int : 442 ms Sinus tachycardia Otherwise normal ECG Confirmed by VIVIAN LEDBETTER, KRYSTIN ([id number]), editor continuity and script LEXY REYES ([id number]) on 11/07/2020 10:56:08 PM Referred By: Confirmed By:KRYSTIN PARK MD
== END 2020-10-24 14:16 | disposition home or self-care (01) | DRG 871 ==
LOC: ERS 15:41 → T4-A 18:13
PROVIDERS: ADMIT Internal Medicine; ATTEND Emergency Medicine
PROC: 8E0ZXY6 Isolation (ICD-10-PCS; 2020-10-16)
PROC: XW033E5 Introduction of Remdesivir Anti-infective into Peripheral Vein, Percutaneous Approach, New Technology Group 5 (ICD-10-PCS; principal; 2020-10-18)
DX: A41.89 Other specified sepsis (principal); U07.1 COVID-19; J12.82 Pneumonia due to coronavirus disease 2019; J96.01 Acute respiratory failure with hypoxia; Z68.41 Body mass index [BMI] 40.0-44.9, adult; E66.9 Obesity, unspecified; E11.9 Type 2 diabetes mellitus without complications; J98.2 Interstitial emphysema; Z79.899 Other long term (current) drug therapy; Z79.84 Long term (current) use of oral hypoglycemic drugs
CPT/HCPCS: 36415; 36416; 71045; 71275; 80048; 80053; 80076; 81001; 82550; 82728; 83605; 83690; 83880; 84145; 84443; 84484; 84703; 85025; 85379; 86140; 87040; 93005; 93010; 96365; 96372; 96375; J0456; J0696; J1100; J1650; J3490; J7050; Q9967

== ENCOUNTER 2021-06-24 18:00 | Outpatient (CLI) | payer BC | END 2021-06-24 18:01 | disposition home or self-care (01) | LOC: SLEEPLAB 18:00 | PROVIDERS: ATTEND Internal Medicine Critical Care Medicine | DX: G47.33 Obstructive sleep apnea (adult) (pediatric) (principal); R53.83 Other fatigue | CPT/HCPCS: 95806 ==